=== PATIENT | female | born 2005 | race Caucasian/White ===

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

== ENCOUNTER 2023-04-04 18:02 | Emergency (ER) | payer OTHER ==
[2023-04-04 18:52] VITALS: TEMP 98.3
--- NOTE | 2023-04-04 19:08 | ED ---
General Adult HPI - General Chief complaint: Extremity Injury, Lower Stated complaint: WARM TO THE TOUCH-POSSIBLE CLOT Time Seen by Provider: 04/04/23 18:56 Source: patient Mode of arrival: ambulatory Limitations: no limitations - History of Present Illness Initial comments: 17-year-old female presenting to the ED with a chief complaint of leg pain. Pat ient states over the past few weeks has had tightness of her right lower leg per especially around her calf and her knee is minimal and notes it is at a 3 out of 10 in severity. Since onset reports ongoing of pain. States it has not been worsening or improved. States that she started control approximately a month ago and is worried that her symptoms may be related to a blood clot. - Related Data Home Medications Medication Instructions Recorded Confirmed No Known Home Medications 07/14/18 07/14/18 Allergies Allergy/AdvReac Type Severity Reaction Status Date / Time No Known Allergies Allergy Verified 04/04/23 18:51 Review of Systems ROS Statement: Those systems with pertinent positive or pertinent negative responses have been documented in the HPI. ROS Other: All systems not noted in ROS Statement are negative. Past Medical History Past Medical History: No Reported History Additional Past Medical History / Comment(s): mitral valve proplase History of Any Multi-Drug Resistant Organisms: None Reported Past Surgical History: Adenoidectomy, Tonsillectomy Past Psychological History: No Psychological Hx Reported Smoking Status: Never smoker Past Alcohol Use History: None Reported Past Drug Use History: None Reported General Exam Limitations: no limitations General appearance: alert, in no apparent distress Head exam: Present: atraumatic, normocephalic Neck exam: Present: normal inspection Respiratory exam: Present: normal lung sounds bilaterally Cardiovascular Exam: Present: regular rate, normal rhythm GI/Abdominal exam: Present: soft Extremities exam: Present: other (Strength and sensation equal and intact of bilateral lower extremities. DP/PT pulses 2+ bilaterally. No pain on palpation of the right calf. Negative Homans sign. Patella shows no areas of crepitus or step-off. No gross deformity.) Neurological exam: Present: alert, oriented X3 Skin exam: Present: warm, dry Course Vital Signs 04/04/23 18:47 Temperature 98.3 F Pulse Rate 68 Respiratory 20 Rate Blood Pressure 134/85 O2 Sat by Pulse 100 Oximetry Medical Decision Making - Medical Decision Making Was pt. sent in by a medical professional or institution (KARLI Hess, BATCH ATTENDANT, urgent care, hospital, or correction...) When possible be specific @ -No Did you speak to anyone other than the patient for history (EMS, parent, family, police, friend...)? What history was obtained from this source @ -No Did you review nursing and triage notes (agree or disagree)? Why? @ -I reviewed and agree with nursing and triage notes Were old charts reviewed (outside hosp., previous admission, EMS record, old EKG, old radiological studies, urgent care reports/EKG's, correction records)? Report findings @ -No old charts were reviewed Differential Diagnosis (chest pain, altered mental status, abdominal pain women, abdominal pain men, vaginal bleeding, weakness, fever, dyspnea, syncope, headache, dizziness, GI bleed, back pain, seizure, CVA, palpatations, mental health, musculoskeletal)? @ -Differential Musculoskeletal Muscular strain, contusion, ligament sprain, fracture, arthritis, septic arthritis, bursitis, cellulitis, muscle spasm, nerve compression, DVT, arterial occlusion, herpes zoster, electrolyte abnormality, tumor.... This is not meant to be in all inclusive list EKG interpreted by me (3pts min.). @ -As above X-rays interpreted by me (1pt min.). @ -None done CT interpreted by me (1pt min.). @ -None done U/S interpreted by me (1pt. min.). @ -Ultrasound unable to fully compress right popliteal vein however there is good blood flow. However unable to rule out DVT of popliteal at this time. What testing was considered but not performed or refused? (CT, X-rays, U/S, labs)? Why? @ -None What meds were considered but not given or refused? Why? @ -None Did you discuss the management of the patient with other professionals (professionals i.e. KARLI Hess, BATCH ATTENDANT, lab, RT, psych nurse, social and human services assistant, home service director, teacher, investment officer, protective services case worker)? Give summary @ -No Was smoking cessation discussed for >3mins.? @ -No Was critical care preformed (if so, how long)? @ -No Were there social determinants of health that impacted care today? How? (Homelessness, low income, unemployed, alcoholism, drug addiction, transportation, low edu. Level, literacy, decrease access to med. care, care home, rehab)? @ -No Was there de-escalation of care discussed even if they declined (Discuss DNR or withdrawal of care, Hospice)? DNR status @ -No What co-morbidities impacted this encounter? (DM, HTN, Smoking, COPD, CAD, Cancer, CVA, ARF, Chemo, Hep., AIDS, mental health diagnosis, sleep apnea, morbid obesity)? @ -None Was patient admitted / discharged? Hospital course, mention meds given and route, prescriptions, significant lab abnormalities, going to OR and other pertinent info. @ -Discharged. Ultrasound unable to completely rule out right popliteal DVT. At this time, reports minimal pain. Patient will be discharged home. Advised to keep appointment as scheduled with PCP on Saturday for repeat ultrasound. Advised to discontinue OCPs. Discharged home in stable condition. Discussed return precautions with patient verbalizes agreement. Undiagnosed new problem with uncertain prognosis? @ -No Drug Therapy requiring intensive monitoring for toxicity (Heparin, Nitro, Insulin, Cardizem)? @ -No Were any procedures done? @ -No Diagnosis/symptom? @ -Right leg pain Acute, or Chronic, or Acute on Chronic? @ -Acute Uncomplicated (without systemic symptoms) or Complicated (systemic symptoms)? @ -Uncomplicated Side effects of treatment? @ -No Exacerbation, Progression, or Severe Exacerbation? @ -No Poses a threat to life or bodily function? How? (Chest pain, [place], DC, pneumonia, PE, COPD, DKA, ARF, appy, cholecystitis, CVA, Diverticulitis, Homicidal, Suicidal, threat to staff... and all critical care pts) @ -No Disposition Clinical Impression: Right leg pain Disposition: HOME SELF-CARE Condition: Good Additional Instructions: Please return to the Emergency Department if symptoms worsen or any other concerns. Follow up with PCP as scheduled for repeat ultrasound. Is patient prescribed a controlled substance at d/c from ED?: No Referrals: Iman Mccann MD [Primary Care Provider] - 1-2 days Time of Disposition: 20:20
--- NOTE | 2023-04-04 19:52 | US ---
EXAMINATION TYPE: US venous doppler duplex LE RT DATE OF EXAM: 04/04/2023 7:45 PM COMPARISON: NONE CLINICAL INDICATION: Female, 17 years old with history of pain; pain in right distal thigh/knee area x 3 days. No hx of DVT. Not on blood thinners SIDE PERFORMED: Right TECHNIQUE: The lower extremity deep venous system is examined utilizing real time linear array sonog robin with graded compression, doppler sonography and color-flow sonography. VESSELS IMAGED: Common Femoral Vein Deep Femoral Vein Greater Saphenous Vein * Femoral Vein Popliteal Vein Small Saphenous Vein * Proximal Calf Veins (* superficial vessels) Right Leg: Unable to fully compress prox popliteal vein. There did appear to be some echoes seen, bu t there is good flow. ? DVT IMPRESSION: Popliteal DVT difficult to exclude.
[2023-04-04 21:08] VITALS: BP 136/85; PULSE 73; RESP 16
== END 2023-04-04 21:20 | disposition home or self-care (01) ==
LOC: EC 18:02
DX: M79.604 Pain in right leg (principal)
CPT/HCPCS: 99283

== ENCOUNTER → 2023-04-10 | Outpatient (CLI) | payer OTHER ==
--- NOTE | 2023-04-10 16:06 | US ---
EXAMINATION TYPE: US venous doppler duplex LE RT DATE OF EXAM: 04/10/2023 1:09 PM COMPARISON: US RLEV 04/04/23 CLINICAL INDICATION: Female, 17 years old with history of M25.561 PAIN IN RIGHT KNEE; recheck; r/o DV T right popliteal vein SIDE PERFORMED: Right TECHNIQUE: The lower extremity deep venous system is examined utilizing real time linear array sonog robin with graded compression, doppler sonography and color-flow sonography. VESSELS IMAGED: Common Femoral Vein Deep Femoral Vein Greater Saphenous Vein * Femoral Vein Popliteal Vein Small Saphenous Vein * Proximal Calf Veins (* superficial vessels) Right Leg: Negative for DVT. No suspicious abnormality within the popliteal vein is identified at this time. There appears to be n ormal compressibility. IMPRESSION: 1. Right lower extremity ultrasound negative for deep venous thrombosis.
== END | disposition home or self-care (01) ==
LOC: RADUSWWP 12:48
PROVIDERS: ATTEND Pediatrics
DX: M25.561 Pain in right knee (principal)